=== PATIENT | female | born 1945 | race Caucasian/White ===

== ENCOUNTER 2018-08-15 18:29 | Emergency (ER) | payer OTHER, MEDICAID ==
[~2018-08-15] VITALS: Ht 149.9 cm; Wt 54.0 kg
[~2018-08-15 18:29] MED LIST: ALBUTEROL; MEV20 PO; MOBIC PO; SYN5 PO; ZAN4 PO; ZES5 PO; [UNRECOGNIZED DRUG - CODE] PO
[2018-08-15 18:33] VITALS: Ht 149.9 cm; Wt 54.0 kg
[2018-08-15 22:37] VITALS: BP 137/89
== END 2018-08-15 22:37 | disposition home or self-care (01) ==
LOC: ED 18:29
DX: S06.0X0A Concussion without loss of consciousness, initial encounter (principal); S13.4XXA Sprain of ligaments of cervical spine, initial encounter; S00.531A Contusion of lip, initial encounter; J44.9 Chronic obstructive pulmonary disease, unspecified; I10 Essential (primary) hypertension; E78.00 Pure hypercholesterolemia, unspecified; Z98.890 Other specified postprocedural states; W18.39XA Other fall on same level, initial encounter; Y93.89 Activity, other specified; Y92.89 Other specified places as the place of occurrence of the external cause; Y99.8 Other external cause status
CPT/HCPCS: 90715